=== PATIENT | female | born 1995 | race Caucasian/White ===

== ENCOUNTER 2018-02-20 19:27 | Inpatient (IN) | payer OTHER ==
[2018-02-20 20:09] LABS: APPEARANCE,URINE CLEAR; BILIRUBIN,URINE NEGATIVE (NEGATIVE); COLOR,URINE STRAW; GLUCOSE, URINE 150 mg/dL (NEGATIVE); KETONES,URINE NEGATIVE (NEGATIVE); LEUKOCYTE ESTERASE,URINE NEGATIVE (NEGATIVE); NITRITE,URINE NEGATIVE (NEGATIVE); PROTEIN,URINE NEGATIVE (NEGATIVE); URINE SPECIFIC GRAVITY 1.004; UROBILINOGEN,URINE NEGATIVE mg/dL (<2.0)
[2018-02-20 20:26] LABS: URINE AMPHETAMINES SCREEN NEGATIVE; URINE BARBITURATES SCREEN NEGATIVE; URINE BENZODIAZEPINES SCREEN NEGATIVE; URINE COCAINE SCREEN NEGATIVE; URINE MARIJUANA (THC) SCREEN NEGATIVE; URINE METHADONE SCREEN NEGATIVE; URINE PHENCYCLIDINE SCREEN NEGATIVE
[2018-02-20] MEDS ORDERED: RINGERS SOLUTION,LACTATED 1,000 ML IV PRN (20:54)
[2018-02-20] MEDS ORDERED: LIDOCAINE 1% INJ-PF (10 MG/ML) 30 ML SDV ONE (21:00)
[2018-02-20] MEDS ORDERED: OXYTOCIN 10 UNIT/ML VIAL ONE (21:00)
[2018-02-20] MEDS ORDERED: MISOPROSTOL 0.2 MG TABLET ONE (21:00)
[2018-02-20] MEDS ORDERED: OXYTOCIN/NORMAL SALINE 20 UNIT/1,000 ML RTUINJ ONE (21:01)
[2018-02-20 21:41] LABS: HEMATOCRIT 31.9 % (36.0-47.0); HEMOGLOBIN 10.6 g/dL (12.0-15.5); MEAN CORPUSCULAR HEMOGLOBIN 27.3 pg (27.0-33.4); MEAN CORPUSCULAR HGB CONC 33.3 g/dL (32.0-36.0); MEAN CORPUSCULAR VOLUME 82 fl (80-97); PLATELET COUNT 300 10^3/uL (150-450); RED BLOOD COUNT 3.89 10^6/uL (3.72-5.28); RED CELL DISTRIBUTION WIDTH 18.7 % (11.5-14.0)
[2018-02-20 22:06] LABS: ABSOLUTE LYMPHOCYTES# (MANUAL) 2.3 10^3/uL (0.5-4.7); ABSOLUTE MONOCYTES # (MANUAL) 0.6 10^3/uL (0.1-1.4); ABSOLUTE NEUTROPHILS# (MANUAL) 8.1 10^3/uL (1.7-8.2); BAND NEUTROPHILS % (MANUAL) 1 % (3-5); BASOPHILS % (MANUAL) 0 % (0-2); EOSINOPHILS % (MANUAL) 0 % (0-6); LYMPHOCYTES % (MANUAL) 19 % (13-45); MONOCYTES % (MANUAL) 5 % (3-13); SEGMENTED NEUTROPHILS % (MAN) 69 % (42-78); TOTAL CELLS COUNTED 100
[2018-02-20 22:08] LABS: ANISOCYTOSIS 2+; PLATELET COMMENT ADEQUATE; POLYCHROMASIA SLIGHT; TOXIC GRANULATION SLIGHT
[2018-02-20 22:09] LABS: METAMYELOCYTES % (MANUAL) 3 % (0); MYELOCYTES % (MANUAL) 1 % (0)
--- NOTE | 2018-02-20 22:26 | Admission Physical ---
Datetime Report Generated by CPN: 02/20/2018 22:25 CURRENT ADMISSION Chief Complaint: Uterine Contractions Indication for Induction: Not Applicable Admit Impression : Term, Intrauterine ; Active Labor Admit Plan: Admit to Unit; Initiate Labor Protocol ALLERGIES Medication Allergies: No Medication Allergies: No Known Allergies (02/20/2018) Latex: No Latex Allergies OBSTETRICAL HISTORY EDC: 02/21/2018 00:00 : 3 Para: 2 Term: 2 Livin Cesareans: 0 Gestational Diabetes: No Rh Sensitization: No Incompetent Cervix: No MARCOS: No Infertility: No ART Treatment: No Uterine Anomaly: No IUGR: No Hx Previous C/S: No Macrosomia: No Hx Loss/Stillborn: No PIH: No Hx : No Placenta Previa/Abruption: No Depression/PP Depression: No PTL/PROM: No Post Hemorrhage: No Current Procedures: None Obstetrical History Comments: G1: weeks 7 lbs 15 oz female epidural G2: .5 weeks 7 lbs 15 oz male epidural SEE RECORDS Alcohol: No Marijuana : No Cocaine: No Other Illicit Drugs: No Cigarettes: Never Smoker. [id number] MEDICAL HISTORY Diabetes: No Blood Transfusion: No Pulmonary Disease (Asthma, TB): No Breast Disease: No Hypertension: No Armature Bander Surgery: No Heart Disease: No Hosp/Surgery: Yes Autoimmune Disorder: No Anesthetic Complications: No Kidney Disease: No Abnormal Pap Smear: Yes Neuro/Epilepsy: No Psychiatric Disorders: No Other Medical Diseases: No Hepatitis/Liver Disease: No Significant Family History: No Varicosities/Phlebitis: No Trauma/Violence : No Thyroid Dysfunction: No Medical History Comments: tonsillectomy age 17, chilbdirth x2, ASCUS pap/neg HPV 07.15.2017 will repeat in 1 year INFECTIOUS HISTORY Gonorrhea: No Genital Herpes: No Chlamydia: No Tuberculosis: No Syphilis: No Hepatitis: No HIV/AIDS Exposure: No Rash or Viral Illness: No HPV: No PHYSICAL EXAM General: Normal HEENT: Normal Neurologic: Normal Thyroid: Normal Heart: Normal Lungs: Normal Breast: Normal Back: Normal Abdomen: Normal Genitourinary Exam: Normal Extremities: Normal DTRs: Normal Pelvic Type: Adequate Vital Signs: Reviewed; Within Normal Limits VAGINAL EXAM Dilatation: 5 Effacement: 100 Station: -1 MEMBRANES Pooling: Negative Membranes: Intact FETUS A EGA: 39.6 Monitoring: External US FHR- Baseline: 130 Variability: Moderate 6-25bpm Accelerations: 15X15 Decelerations: None FHR Category: Category I Estimated Weight (gm): 3500 Presentation: Vertex PLANS FOR LABOR AND DELIVERY Labor and Delivery: Other, Specify Other Pain Management Plans: unsure Feeding Preference: Breast Benefit of Breast Feed Discussed: Yes Circumcision: N/A INFORMED CONSENT Signature: with User ID: [email or web address]
--- NOTE | 2018-02-20 22:54 | Warning Signs in Babies ---
VOD Warning Signs Datetime Report Generated by [facility]: 02/20/2018 22:54 VOD#608 -Warning Signs in Babies: Needs to be viewed. (02/20/2018 19:40:Chely Guerrero RN)
[2018-02-20] MEDS ORDERED: ACETAMINOPHEN WITH CODEINE #3 TABLET PO PRN ×2 (23:07)
[2018-02-20] MEDS ORDERED: BENZOCAINE/MENTHOL AEROSOL SPRAY 56 ML TOP PRN (23:07)
[2018-02-20] MEDS ORDERED: GLYCERIN/WITCH HAZEL LEAF 1 EACH MED..PAD TP PRN (23:07)
[2018-02-20] MEDS ORDERED: NA PHOS,M-B/NA PHOS,DI-BA (ADULT) 133 ML ENEMA PR PRN (23:07)
[2018-02-20] MEDS ORDERED: OXYTOCIN/NORMAL SALINE 20 UNIT/1,000 ML RTUINJ IV PRN (23:07)
[2018-02-20] MEDS ORDERED: ZOLPIDEM TARTRATE 5 MG TABLET PO PRN (23:07)
[2018-02-20] MEDS ORDERED: PROMETHAZINE HCL 25 MG TABLET PO PRN (23:07)
[2018-02-20] MEDS ORDERED: PROMETHAZINE HCL 25 MG SUPP.RECT PR PRN (23:07)
[2018-02-20] MEDS ORDERED: MAGNESIUM HYDROXIDE SUSP 30 ML UDCUP PO PRN (23:07)
[2018-02-20] MEDS ORDERED: MEASLES,MUMPS&RUBELLA VACC/PF 0.5 ML VIAL SUBCUT PRN (23:07)
[2018-02-20] MEDS ORDERED: ACETAMINOPHEN 650 MG SUPP.RECT PR PRN (23:07)
[2018-02-20] MEDS ORDERED: DIBUCAINE 1% OINTMENT 28 GM TP PRN (23:07)
[2018-02-20] MEDS ORDERED: DIPH/PERTUSS(ACELL)/TETANUS VAC/PF 0.5 ML SYR (>=10YO) IM PRN (23:07)
[2018-02-20] MEDS ORDERED: PROMETHAZINE HCL INJ 25 MG/1 ML VIAL IV PRN (23:07)
[2018-02-20] MEDS ORDERED: PSEUDOEPHEDRINE HCL 30 MG TABLET PO PRN (23:07)
[2018-02-20] MEDS ORDERED: DIPHENHYDRAMINE HCL 25 MG CAPSULE PO PRN (23:07)
[2018-02-20] MEDS ORDERED: METHYLERGONOVINE MALEATE INJ/PF 0.2 MG/1 ML AMPULE ONE (23:58)
[2018-02-21] MEDS ORDERED: OXYTOCIN/NORMAL SALINE 20 UNIT/1,000 ML RTUINJ ONE (00:03)
[2018-02-21] MEDS ORDERED: IBUPROFEN 800 MG TABLET ONE (00:40)
[2018-02-21] MEDS ORDERED: MAG HYDROX/AL HYDROX/SIMETH SUSP 30 ML UDCUP ONE (00:48)
--- NOTE | 2018-02-21 02:54 | Delivery Summary ---
Del Sum A-C Datetime Report Generated by CPN: 02/21/2018 02:54 DELIVERY PERSONNEL DELIVERY PERSONNEL: [id number] Delivery Doctor:: Vicki Márquez MD Labor and Delivery Nurse:: Angie Fernandes laborer hoisting Nurse:: Nita Trejo RN Fire Manager/MOLD CARRIER: David Ertel, MOLD CARRIER MATERNAL INFORMATION Delivery Anesthesia: None Medications After Delivery: Pitocin Drip 20 Units/1000ml NSS Maternal Complications: None LABOR SUMMARY EDC: 02/21/2018 00:00 No. Babies in Womb: 1 Attempted: No Labor Anesthesia: None LABOR INFORMATION Reason for Induction: Not Applicable Onset of Labor: 02/20/2018 20:48 Complete Dilatation: 02/20/2018 22:49 Oxytocin: N/A Group B Beta Strep: negative (Annotations: Data stored by [facility] on behalf of user) Antibiotics # of Doses: 0 Antibiotics Time of Last Dose: n/a Name of Antibiotic Given: n/a Steroids Given: None Reason Steroids Not Administered: Not Applicable MEMBRANES Membranes Rupture Method: Spontaneous Rupture of Membranes: 02/20/2018 22:16 Length of Rupture (hr): 0.55 Amniotic Fluid Color: Clear Amniotic Fluid Amount: Moderate Amniotic Fluid Odor: Normal STAGES OF LABOR Stage 1 hr: 2 Stage 1 min: 1 Stage 2 hr: 0 Stage 2 min: 0 Stage 3 hr: 0 Stage 3 min: 5 Total Time in Labor hr: 2 Total Time in Labor min: 6 VAGINAL DELIVERY Episiotomy: None Laceration #1: None Laceration Extension #1: N/A Laceration Repair: Not Applicable Sponge Count Correct: N/A Sharps Count Correct: N/A CSECTION DELIVERY Primary Indication: N/A Secondary Indication: N/A CSection Incidence: N/A Labor: N/A Elective: N/A CSection Incision: N/A BABY A INFORMATION Delivery Date/Time: 02/20/2018 22:49 Method of Delivery: Vaginal Born in Route : No : N/A Forceps: N/A Vacuum Extraction: N/A Shoulder Dystocia : No PRESENTATION/POSITION BABY A Presentation: Cephalic Cephalic Presentation: Vertex Vertex Position: Left Occipital Anterior Breech Presentation: N/A PLACENTA INFORMATION BABY A Placenta Delivery Time : 02/20/2018 22:54 Placenta Method of Delivery: Spontaneous Placenta Status: Delivered SCORES BABY A Heart Rate 1 min: >100 bpm Resp Effort 1 min: Good Cry Reflex Irritability 1 min: Cough or Sneeze or Pulls Away Muscle Tone 1 min: Active Motion Color 1 min: Blue/Pale Resuscitation Effort 1 min: Tactile Stimulation SCORE 1 MIN: 8 Heart Rate 5 min: >100 bpm Resp Effort 5 min: Good Cry Reflex Irritability 5 min: Cough or Sneeze or Pulls Away Muscle Tone 5 min: Active Motion Color 5 min: Blue/Pale SCORE 5 MIN: 8 INFORMATION BABY A Gestational Age at Delivery: 39.6 Gestational Status: Full Term- 39- 40.6 Weeks Infant Outcome : Liveborn Infant Condition : Stable Sex: Female IDENTIFICATION BABY A Infant Verification Date/Time: 02/20/2018 23:01 ID Band Number: [id number] Mother's Name Verified: Yes Infant RN Verifying Infant: Beka Fernandes, RN Additional Verifying Personnel: Anabella Trejo RN WEIGHT/LENGTH BABY A Birthweight (gm): 3160 Weight (lb): 6 Weight (oz): 15 Infant Length (in): 20.00 Length (cm): 50.80 CORD INFORMATION BABY A No. Cord Vessels: 3 Nuchal Cord : Around Neck x1, Loose Cord Blood Taken: Yes-For Eval (Mom's Blood Type - or O+) Infant Suction: Mouth; Nose ASSESSMENT BABY A Infant Complications: None Physical Findings at Delivery: Within Normal Limits Respirations: Appears Normal Skin to Skin: Yes Skin to Skin Time (min): 120 (Annotations: Data stored by [facility] on behalf of user) Undergraduate Internship/ALS Called : No Care By: Anabella Trejo RN Transferred To: Remains with Mother SIGNATURES Signature: with User ID: [email or web address]
[2018-02-21 08:38] LABS: HEMATOCRIT 28.5 % (36.0-47.0); HEMOGLOBIN 9.4 g/dL (12.0-15.5); MEAN CORPUSCULAR HEMOGLOBIN 26.6 pg (27.0-33.4); MEAN CORPUSCULAR HGB CONC 32.9 g/dL (32.0-36.0); MEAN CORPUSCULAR VOLUME 81 fl (80-97); PLATELET COUNT 290 10^3/uL (150-450); RED BLOOD COUNT 3.53 10^6/uL (3.72-5.28); RED CELL DISTRIBUTION WIDTH 18.9 % (11.5-14.0)
[2018-02-21] MEDS: SENNOSIDES/DOCUSATE 8.6-50 MG 1 EACH TABLET PO SCH (09:28)
[2018-02-21] MEDS: FAMOTIDINE 20 MG TABLET PO SCH ×2 (09:28→21:22)
[2018-02-21] MEDS: FERROUS SULFATE 325 MG TABLET PO SCH ×2 (09:28→17:10)
[2018-02-21] MEDS: DOCUSATE SODIUM 100 MG CAPSULE PO SCH ×2 (09:28→18:09)
[2018-02-21] MEDS: IBUPROFEN 800 MG TABLET PO SCH ×3 (09:29→21:26)
--- NOTE | 2018-02-21 11:16 | PDOC PROGRESS REPORT ---
Subjective-OB Progress Note for:: 02/21/18 Subjective: Pt doing well, no concerns. She reports light bleeding, reg diet and voiding without difficulty. Physical Exam (OB) Vital Signs: Temp Pulse Resp BP Pulse Ox 98.0 F 95 18 96/67 L 99 02/21/18 02:07 02/21/18 02:07 02/21/18 02:07 02/21/18 02:07 02/21/18 02:07 Intake & Output 02/20/18 02/21/18 02/22/18 06:59 06:59 06:59 Output Total 1000 Balance -1000 Weight 74.5 kg - Lochia Lochia Amount: Small 10-25 ml Lochia Color: Rubra/Red - Abdomen Description: Tender, Firm, Soft Hernia Present: No Fundal Description: Firm, Midline Fundal Height: u/u - u/2 Objective-Diagnostic Laboratory: 02/21/18 08:03 02/20/18 02/20/18 02/20/18 19:40 21:23 21:23 WBC 11.0 H RBC 3.89 Hgb 10.6 L Hct 31.9 L MCV 82 MCH 27.3 MCHC 33.3 RDW 18.7 H Plt Count 300 Seg Neutrophils % Not Reportable Lymphocytes % Not Reportable Monocytes % Not Reportable Eosinophils % Not Reportable Basophils % Not Reportable Absolute Neutrophils Not Reportable Absolute Lymphocytes Not Reportable Absolute Monocytes Not Reportable Absolute Eosinophils Not Reportable Absolute Basophils Not Reportable Urine Color STRAW Urine Appearance CLEAR Urine pH 7.0 Ur Specific [place] 1.004 Urine Protein NEGATIVE Urine Glucose (UA) 150 H Urine Ketones NEGATIVE Urine Blood NEGATIVE Urine Nitrite NEGATIVE Ur Leukocyte Esterase NEGATIVE Blood Type B NEGATIVE Antibody Screen NEGATIVE 02/21/18 08:03 WBC 13.0 H RBC 3.53 L Hgb 9.4 L Hct 28.5 L MCV 81 MCH 26.6 L MCHC 32.9 RDW 18.9 H Plt Count 290 Seg Neutrophils % Lymphocytes % Monocytes % Eosinophils % Basophils % Absolute Neutrophils Absolute Lymphocytes Absolute Monocytes Absolute Eosinophils Absolute Basophils Urine Color Urine Appearance Urine pH Ur Specific [place] Urine Protein Urine Glucose (UA) Urine Ketones Urine Blood Urine Nitrite Ur Leukocyte Esterase Blood Type Antibody Screen Assessment and Plan(PN) - Assessment and Plan (1) Vaginal delivery Is this a current diagnosis for this admission?: Yes - Time Spent with Patient Time with patient: Less than 15 minutes Medications reviewed and adjusted accordingly: Yes - Disposition Anticipated Discharge: Home Within: within 24 hours
[2018-02-21] MEDS: PRENATAL VITAMIN W DHA CAPSULE PO SCH (17:07)
[2018-02-22] MEDS: IBUPROFEN 800 MG TABLET PO SCH ×2 (06:02→14:38)
[2018-02-22] MEDS: PRENATAL VITAMIN W DHA CAPSULE PO SCH (09:36)
[2018-02-22] MEDS: FERROUS SULFATE 325 MG TABLET PO SCH (09:36)
[2018-02-22] MEDS: FAMOTIDINE 20 MG TABLET PO SCH (09:36)
[2018-02-22] MEDS: SENNOSIDES/DOCUSATE 8.6-50 MG 1 EACH TABLET PO SCH (09:36)
[2018-02-22] MEDS: DOCUSATE SODIUM 100 MG CAPSULE PO SCH (09:36)
[2018-02-22 09:46] VITALS: BP 93/47
--- NOTE | 2018-02-22 10:44 | PDOC PROGRESS REPORT ---
Subjective-OB Progress Note for:: 02/22/18 Subjective: pt doing well, no concerns. She reports light bleeding, reg diet and voiding without difficulty. Physical Exam (OB) Vital Signs: Temp Pulse Resp BP Pulse Ox 97.6 F 59 L 16 93/47 L 98 02/22/18 08:25 02/22/18 08:25 02/22/18 08:25 02/22/18 08:25 02/22/18 08:25 Intake & Output 02/21/18 02/22/18 02/23/18 06:59 06:59 06:59 Output Total 1000 Balance -1000 Weight 74.5 kg - Lochia Lochia Amount: Small 10-25 ml Lochia Color: Rubra/Red - Abdomen Description: Soft, Round Hernia Present: No Fundal Description: Firm, Midline Fundal Height: u/u - u/2 Objective-Diagnostic Laboratory: 02/21/18 08:03 02/22/18 07:44 Blood Type B NEGATIVE Assessment and Plan(PN) - Assessment and Plan (1) Vaginal delivery Is this a current diagnosis for this admission?: Yes - Time Spent with Patient Time with patient: Less than 15 minutes Medications reviewed and adjusted accordingly: Yes - Disposition Anticipated Discharge: Home Within: within 24 hours
--- NOTE | 2018-02-22 13:31 | PDOC DISCHARGE SUMMARY ---
Final Diagnosis Discharge Date: 02/22/18 - Final Diagnosis (1) Vaginal delivery Is this a current diagnosis for this admission?: Yes Discharge Data - Discharge Medication Home Medications: Prenat 115/Iron Fum/Folic/Dss [ 19 Tablet] 1 tab PO DAILY 02/20/18 Reason(s) for Admission: Onset of Labor Procedures: NST Intrapartum Procedure(s): Spontaneous Vaginal Delivery - Diagnosis Test Laboratory: Temp Pulse Resp BP Pulse Ox 97.6 F 59 L 16 93/47 L 98 02/22/18 08:25 02/22/18 08:25 02/22/18 08:25 02/22/18 08:25 02/22/18 08:25 02/20/18 02/20/18 02/21/18 19:40 21:23 08:03 RBC 3.89 3.53 L Hgb 10.6 L 9.4 L Hct 31.9 L 28.5 L Urine Opiates Screen NEGATIVE - Discharge information/Instructions Discharge Activity: Activity As Tolerated, Pelvic Rest Discharge Diet: Regular Disposition: HOME, SELF-CARE Follow up with: [facility] in: 3, Weeks
[2018-02-23 14:10] LABS: PATH REVIEW PATHOLOGIST REVIEWED
== END 2018-02-22 14:42 | disposition home or self-care (01) | DRG 775 ==
LOC: LC 19:27 → LR 20:57 → 2S 02-21 01:50
PROVIDERS: ADMIT Obstetrics & Gynecology; ATTEND Obstetrics & Gynecology
PROC: 10E0XZZ Delivery of Products of Conception, External Approach (ICD-10-PCS; principal; 2018-02-20)
DX: O36.0930 Maternal care for other rhesus isoimmunization, third trimester, not applicable or unspecified (principal); O69.81X0 Labor and delivery complicated by cord around neck, without compression, not applicable or unspecified; Z3A.39 39 weeks gestation of pregnancy; Z37.0 Single live birth
CPT/HCPCS: 36415; 80307; 81005; 85025; 85027; 85461; 86592; 86850; 86900; 86901; 90715; J2210; J2590; J2790; J3490